=== PATIENT | female | born 1965 | race Caucasian/White ===

== ENCOUNTER 2016-05-07 16:08 | Emergency (ER) | payer MEDICARE, OTHER ==
[2016-05-07 16:29] VITALS: BP 115/57
[2016-05-07] MEDS ORDERED: DIPH/PERTUSS(ACELL)/TETANUS VAC/PF 0.5 ML SYR (>=10YO) IM ONE (16:45)
--- NOTE | 2016-05-07 16:47 | ER Document Report ---
ED Medical Screen (RME) - General Chief Complaint: Laceration Stated Complaint: LACERATION TO LEFT WRIST Time seen by provider: 16:46 Mode of Arrival: Ambulatory Information source: Patient Notes: 50-year-old female cut her dorsal left wrist proximal to the ulnar styloid. Tetanus is not current. I have greeted and performed a rapid initial assessment of this patient. A comprehensive ED assessment, evaluation of the patient, analysis of test results , and completion of the medical decision making process will be contacted by additional ED providers. TRAVEL OUTSIDE OF THE [place] IN LAST 30 DAYS: No Past Medical History GI Medical History: Reports: Hx Hiatal Hernia - [place] 2001 Psychiatric Medical History: Reports: Hx Anxiety - DX [place] 2007, Hx Bipolar Disorder - DX [place] 2007, Hx Depression - DX [place] 2007 Past Surgical History: Reports: Hx Breast Surgery - breast augmentation, Hx Nose Surgery, Hx Oral Surgery, Hx Orthopedic Surgery - left foot. Denies: Hx Adenoidectomy Physical Exam - Vital signs Vitals: Temp Pulse Resp BP Pulse Ox 97.8 F 78 16 115/57 L 97 05/07/16 16:27 05/07/16 16:27 05/07/16 16:27 05/07/16 16:27 05/07/16 16:27 Course - Vital Signs Vital signs: Temp Pulse Resp BP Pulse Ox 97.8 F 78 16 115/57 L 97 05/07/16 16:27 05/07/16 16:27 05/07/16 16:27 05/07/16 16:27 05/07/16 16:27
== END 2016-05-07 20:30 | disposition left against medical advice (07) ==
LOC: ER 16:08
DX: Z53.9 Procedure and treatment not carried out, unspecified reason (principal); S61.512A Laceration without foreign body of left wrist, initial encounter
CPT/HCPCS: 99281

== ENCOUNTER 2016-12-12 10:22 | Emergency (ER) | payer MEDICARE, OTHER ==
[2016-12-12 10:46] VITALS: BP 143/71
--- NOTE | 2016-12-12 11:36 | ER Document Report ---
ED Hand/Wrist Injury - General Chief Complaint: Hand Injury Stated Complaint: DOG BITE Time Seen by Provider: 12/12/16 11:14 Mode of Arrival: Ambulatory Information source: Patient Notes: 50-year-old female presents to ED for a inflamed painful dog bite to her left hand. She states that she was taken her dog to the vet to have him put to sleep when she picked him up to put him on the table he clamped down a bit her on the hand. At the time she was too distraught to pay attention to the bite and she did not clean it then. She did clean it this morning and put peroxide and then alcohol on it but by then it is already started to get infected. TRAVEL OUTSIDE OF THE [place] IN LAST 30 DAYS: No - HPI Injury to: Hand Onset: Yesterday Where: Public place Timing: Still present Quality of pain: Sharp, Throbbing Severity: Mild Pain Level: 3 Context: Other - Dog bite yesterday - Related Data Allergies/Adverse Reactions: No Known Allergies Allergy (Verified 12/12/16 10:44) Past Medical History - General Information source: Patient - Social History Smoking Status: Current Every Day Smoker Cigarette use (# per day): Yes - 1/2-1 pack per day Chew tobacco use (# tins/day): No Smoking Education Provided: Yes - Less than 1 minute Frequency of alcohol use: None Drug Abuse: None Occupation: Retired Lives with: Alone Family History: CAD, COPD, Hyperlipidemia, Hypertension, Malignancy, Thyroid Disfunction Patient has suicidal ideation: No Patient has homicidal ideation: No - Medical History Medical History: Other - Vitamin deficiencies - Past Medical History Cardiac Medical History: Reports: None Pulmonary Medical History: Reports: None EENT Medical History: Reports: None Neurological Medical History: Reports: None Endocrine Medical History: Reports: None Renal/ Medical History: Reports: Hx Ovarian Cysts Malignancy Medical History: Reports: None GI Medical History: Reports: Hx Hiatal Hernia - [place] 2001 Musculoskeltal Medical History: Reports Hx Musculoskeletal Deformity, Reports Hx Musculoskeletal Trauma Skin Medical History: Reports None Psychiatric Medical History: Reports: Hx Anxiety - DX [place] 2007, Hx Bipolar Disorder - DX [place] 2007, Hx Depression - DX [place] 2007, Other - Narcolepsy Traumatic Medical History: Reports: None Infectious Medical History: Reports: None Past Surgical History: Reports: Hx Breast Surgery - breast augmentation, Hx Nose Surgery, Hx Oral Surgery, Hx Orthopedic Surgery - left foot - Immunizations Hx Diphtheria, Pertussis, Tetanus Vaccination: Yes Review of Systems - Review of Systems Constitutional: No symptoms reported EENT: No symptoms reported Cardiovascular: No symptoms reported Respiratory: No symptoms reported Gastrointestinal: No symptoms reported Genitourinary: No symptoms reported Female Genitourinary: No symptoms reported Musculoskeletal: No symptoms reported Skin: Other - dog bite to left hand Hematologic/Lymphatic: No symptoms reported Neurological/Psychological: No symptoms reported -: Yes All other systems reviewed and negative Physical Exam - Vital signs Vitals: Temp Pulse Resp BP Pulse Ox 98.5 F 63 16 143/71 H 100 12/12/16 10:44 12/12/16 10:44 12/12/16 10:44 12/12/16 10:44 12/12/16 10:44 Interpretation: Normal - General General appearance: Appears well, Alert - HEENT Head: Normocephalic, Atraumatic Eyes: Normal Pupils: PERRL - Respiratory Respiratory status: No respiratory distress Chest status: Nontender Breath sounds: Normal Chest palpation: Normal - Cardiovascular Rhythm: Regular Heart sounds: Normal auscultation Murmur: No - Abdominal Inspection: Normal Distension: No distension Bowel sounds: Normal Tenderness: Nontender Organomegaly: No organomegaly - Back Back: Normal, Nontender - Extremities General upper extremity: Normal inspection, Nontender, Normal color, Normal ROM , Normal temperature General lower extremity: Normal inspection, Nontender, Normal color, Normal ROM , Normal temperature, Normal weight bearing. No: Sreekanth's sign Hand: Tender, No evidence of human bite, No evidence of FB, Swelling, Other - dog bite to left hand - Neurological Neuro grossly intact: Yes Cognition: Normal Orientation: AAOx4 [place] Coma Scale Eye Opening: Spontaneous [place] Coma Scale Verbal: Oriented [place] Coma Scale Motor: Obeys Commands [place] Coma Scale Total: 15 Speech: Normal Motor strength normal: LUE, RUE, LLE, RLE Sensory: Normal - Psychological Associated symptoms: Normal affect, Normal mood - Skin Skin Temperature: Warm Skin Moisture: Dry Skin Color: Normal Course - Re-evaluation Re-evalutation: 12/12/16 11:57 HEENT cleaned well with soap and water peroxide applied and bacitracin and Band- Aid. Patient given prescriptions for Augmentin and Phenergan. Patient advised to clean the hand well with soap and water and apply bacitracin and Band-Aid. Patient was provided with bacitracin and Band-Aid. Patient instructed to follow -up with her primary doctor within 48-72 hours to ensure that the hand is healing. - Vital Signs Vital signs: Temp Pulse Resp BP Pulse Ox 98.5 F 63 16 143/71 H 100 12/12/16 10:44 12/12/16 10:44 12/12/16 10:44 12/12/16 10:44 12/12/16 10:44 Discharge - Discharge Clinical Impression: Dog bite of left hand Qualifiers: Encounter type: initial encounter Qualified Code(s): S61.452A - Open bite of left hand, initial encounter Condition: Stable Disposition: HOME, SELF-CARE Additional Instructions: Animal Bites Animal bites are often heavily contaminated with bacteria. In spite of thorough cleansing and proper treatment, these wounds frequently become infected. Bite wounds of the hands are especially prone to complications. Bites are dressed, if possible. Large wounds may require suturing after internal cleansing. Because of infection risk, some large wounds must remain unstitched. Your doctor is trained to advise you on the best treatment for your bite. Call the doctor at once if the wound becomes red, swollen, warm, increasingly painful, or if it begins to drain. Danger signs also include red streaks up the involved extremity, swollen glands in the groin or under the arm , or fever and chills. The risk of rabies from domestic animals is very low. Bats, sick animals, and wild animals may expose you to rabies. The physician, or the health department, will inform you if you will need to receive the rabies vaccine. CELLULITIS: You have an infection of your skin and underlying soft tissues called cellulitis. This is due to bacteria, which can enter through any break in the skin, or even through an irritated hair follicle. Untreated, cellulitis will usually worsen. Antibiotics are required. Usually, warm packs or warm soaks, and elevation of the infected area are recommended. You should start getting better within 24 to 36 hours. Most infections respond quickly to the right medication. Follow-up care is important, however, to check for abscess (boil) formation, unsuspected foreign body, or resistant infection. If you develop fever, chills, or if the area of infection is becoming rapidly more swollen or painful, call the doctor at once. SOAP CLEANSING: Gently wash the wound daily using a mild soap (like Ivory, Phisoderm, Neutrogena). Use warm water, rubbing gently until all debris, ooze, and crusting have been washed from the wound. Allow to dry briefly (about 10 minutes) after cleaning. Repeat this cleansing at least three times a day for the first two days and then once or twice a day. ANTIBIOTIC OINTMENT PROTECTION: Your wounds are such that dressing them is not practical or optional. After cleansing, you should apply a thin coating of antibiotic ointment ( Bacitracin, not Neosporin) to the wounds at least three times daily. This lessens infection risk, and may decrease the amount of scarring. Use a q-tip or dull butter knife, not your finger, to apply this ointment. Any debris or ooze which builds up in the ointment should be gently rubbed off with a sterile gauze pad. Harder crusting may need to be gently scrubbed off with a clean wash cloth with soap and warm water, perhaps applying a warm, wet wash cloth to the wound for ten minutes first. Development of redness, severe itching, or blistering may mean allergy to the ointment. See the doctor. Augmentin Augmentin is a mixture of amoxicillin and clavulanate. Amoxicillin is a member of the penicillin family. It covers the germs likely to cause ear, bronchial, and urinary infections better than plain penicillin. The addition of clavulanate allows it to cover staph infections of the skin, as well as resistant cases of ear and sinus infections. Your physician has chosen Augmentin for you because of the special nature of your situation. Augmentin is best taken with meals. Nausea after taking the medication is rare, but can occur. Diarrhea can occur, particularly in small children. Vaginal yeast infections, and oral thrush in infants are also common. Contact your physician if these problems occur. Allergy to penicillins is common. If you have had an allergic reaction to any drug of the penicillin family, you should never take any other penicillin. Notify your doctor at once if you develop hives, shortness of breath, swelling, or faintness. FOLLOW-UP CARE: Follow-up with your primary doctor in 48-72 hours or sooner if the infection does not clear up. If you have been referred to a physician for follow-up care, call the physician s office for an appointment as you were instructed or within the next two days. If you experience worsening or a significant change in your symptoms, notify the physician immediately or return to the Emergency Department at any time for re-evaluation. Prescriptions: Amox Tr/Potassium Clavulanate [Augmentin 875-125 Tablet] 1 tab PO BID 7 Days tablet Promethazine HCl [Phenergan 25 mg Tablet] 25 mg PO BID #15 tablet Forms: Elevated Blood Pressure, Smoking Cessation Education
== END 2016-12-12 11:40 | disposition home or self-care (01) ==
LOC: ER 10:22
DX: S61.452A Open bite of left hand, initial encounter (principal); F17.210 Nicotine dependence, cigarettes, uncomplicated; W54.0XXA Bitten by dog, initial encounter; Y92.89 Other specified places as the place of occurrence of the external cause
CPT/HCPCS: 99283

== ENCOUNTER 2017-03-10 07:54 | Emergency (ER) | payer MEDICARE, OTHER ==
[2017-03-10 08:08] VITALS: BP 139/72
[2017-03-10] MEDS ORDERED: TETRACAINE HCL 0.5% OPH SOLN 2 ML ONE (08:19)
[2017-03-10] MEDS ORDERED: TETRACAINE HCL 0.5% OPH SOLN 2 ML OD ONE (08:20)
--- NOTE | 2017-03-10 08:29 | ER Document Report ---
HPI - HPI Patient complains to provider of: eye irritation Onset: This morning Onset/Duration: Sudden Quality of pain: Other - sore Pain Level: 4 Context: Patient presents emergency department with complaints that her right eye feels scratchy. She reports she slept in her contacts longer than she normally does. Denies discharge. Denies trauma. Patient also complains of left-sided jaw dental pain. Reports her she has had this pain since she had dental work on Sunday. Denies fever vomiting diarrhea. Associated Symptoms: None Exacerbated by: Denies Relieved by: Denies Similar symptoms previously: Yes Recently seen / treated by doctor: Yes - dentist Past Medical History - General Information source: Patient - Social History Smoking Status: Current Every Day Smoker Cigarette use (# per day): Yes Frequency of alcohol use: None Drug Abuse: None Family History: CAD, COPD, Hyperlipidemia, Hypertension, Malignancy, Thyroid Disfunction Patient has suicidal ideation: No Patient has homicidal ideation: No Renal/ Medical History: Reports: Hx Ovarian Cysts. Denies: Hx Peritoneal Dialysis GI Medical History: Reports: Hx Hiatal Hernia - [place] 2001 Musculoskeltal Medical History: Reports Hx Musculoskeletal Deformity, Reports Hx Musculoskeletal Trauma Psychiatric Medical History: Reports: Hx Anxiety - DX [place] 2007, Hx Bipolar Disorder - DX [place] 2007, Hx Depression - DX [place] 2007 Past Surgical History: Reports: Hx Breast Surgery - breast augmentation, Hx Nose Surgery, Hx Oral Surgery, Hx Orthopedic Surgery - left foot. Denies: Hx Adenoidectomy - Immunizations Hx Diphtheria, Pertussis, Tetanus Vaccination: Yes Vertical Provider Document - CONSTITUTIONAL Agree With Documented VS: Yes - INFECTION CONTROL TRAVEL OUTSIDE OF THE [place] IN LAST 30 DAYS: No - HEENT HEENT: Atraumatic, Normocephalic, PERRLA. negative: Dental Injury, Pharyngeal Erythema, Tympanic Membrane Red - NECK Neck: Normal Inspection, Supple. negative: Lymphadenopathy-Left, Lymphadenopathy-Right - RESPIRATORY Respiratory: Breath Sounds Normal, No Respiratory Distress O2 Sat by Pulse Oximetry: 100 - CARDIOVASCULAR Cardiovascular: Regular Rate - BACK Back: Normal Inspection - MUSCULOSKELETAL/EXTREMETIES Musculoskeletal/Extremeties: MAEW, FROM - NEURO Level of Consciousness: Awake, Alert, Appropriate Motor/Sensory: No Motor Deficit - DERM Integumentary: Warm, Dry Course - Vital Signs Vital signs: Temp Pulse Resp BP Pulse Ox 98.2 F 64 16 139/72 H 100 03/10/17 08:07 03/10/17 08:07 03/10/17 08:07 03/10/17 08:07 03/10/17 08:07 Procedures - Eye Procedure Right Eye Irrigated w/ Saline (ccs): 10 Alcaine Drops Administered: Yes - tetracaine Fluorescein applied: Right Antibiotic Oinment/Drps Admin: Right eye Slit lamp used: No Notes: 03/10/17 11:21 willis lamp utilized no fluorescein uptake noted Discharge - Discharge Clinical Impression: Irritation of right eye, Pain, dental Condition: Stable Disposition: HOME, SELF-CARE Instructions: Acetaminophen, Erythromycin ([facility]), Opthalmology Additional Instructions: *You have been evaluated for eye irritation, dental pain *Take tyelnol as indicated for pain *Use eye ointment as prescribed- 1/2 inch ribbon three times a day for 3 days *Good hand washing- Do not reuse wash clothes or towels after wiping eyes *Follow up with an sole assessor for recheck within one week *Follow up with your dentist within one week *Return to ED for worsening condition, changes, needs Monitor your blood pressure. Your blood pressure was elevated today. This may be because you were anxious, in pain or because you need medication. It is important to follow up with your primary care provider for full evaluation. Forms: Elevated Blood Pressure Referrals: CIARA JEFFERY, [Primary Care Provider] - Follow up as needed
[2017-03-10] MEDS ORDERED: ERYTHROMYCIN 0.5% OPH OINTMENT 3.5 GM (ER DISP) OD SCH (08:30)
== END 2017-03-10 08:36 | disposition home or self-care (01) ==
LOC: ER 07:54
DX: H57.8 Other specified disorders of eye and adnexa (principal); K08.89 Other specified disorders of teeth and supporting structures; F17.210 Nicotine dependence, cigarettes, uncomplicated
CPT/HCPCS: 99283; A9270

== ENCOUNTER 2017-07-13 12:56 | Emergency (ER) | payer OTHER, MEDICARE ==
[2017-07-13 14:15] LABS: APPEARANCE,URINE SLIGHTLY-CLOUDY; BILIRUBIN,URINE NEGATIVE (NEGATIVE); COLOR,URINE YELLOW; GLUCOSE, URINE NEGATIVE (NEGATIVE); KETONES,URINE NEGATIVE (NEGATIVE); LEUKOCYTE ESTERASE,URINE LARGE (NEGATIVE); NITRITE,URINE NEGATIVE (NEGATIVE); PROTEIN,URINE NEGATIVE (NEGATIVE); URINE SPECIFIC GRAVITY 1.008; UROBILINOGEN,URINE NEGATIVE mg/dL (<2.0)
--- NOTE | 2017-07-13 14:51 | ER Document Report ---
ED General - General Mode of Arrival: Ambulatory Information source: Patient <OMERO MARMOLEJO - Last Filed: 07/13/17 15:24> - General TRAVEL OUTSIDE OF THE [place] IN LAST 30 DAYS: No <AC CROCKETT - Last Filed: 07/15/17 10:59> - General Chief Complaint: Flank Pain Stated Complaint: FLANK PAIN Time Seen by Provider: 07/13/17 13:16 Notes: Patient is a 51-year-old female who presents to the emergency department today with complaints of dysuria, urinary frequency, and right-sided flank pain. Patient states she has had urinary tract infections in the past and her symptoms today "feels exactly like her previous urinary tract infections". Patient states she has had chills with subjective fevers and associated nausea. Patient denies any vomiting or vaginal discharge. Patient denies any pelvic pain. (OMERO MARMOLEJO) - Related Data Allergies/Adverse Reactions: NSAIDS (Non-Steroidal Anti-Inflamma Adverse Reaction (Verified 07/13/17 13:11) Past Medical History - General Information source: Patient <OMERO MARMOLEJO - Last Filed: 07/13/17 15:24> - Social History Smoking Status: Current Every Day Smoker Chew tobacco use (# tins/day): No Frequency of alcohol use: Occasional Drug Abuse: None Family History: CAD, COPD, Hyperlipidemia, Hypertension, Malignancy, Thyroid Disfunction Patient has suicidal ideation: No Patient has homicidal ideation: No Renal/ Medical History: Reports: Hx Ovarian Cysts. Denies: Hx Peritoneal Dialysis GI Medical History: Reports: Hx Hiatal Hernia - [place] 2001 Musculoskeltal Medical History: Reports Hx Musculoskeletal Deformity, Reports Hx Musculoskeletal Trauma Psychiatric Medical History: Reports: Hx Anxiety - DX [place] 2007, Hx Bipolar Disorder - DX [place] 2007, Hx Depression - DX [place] 2007 Past Surgical History: Reports: Hx Breast Surgery - breast augmentation, Hx Nose Surgery, Hx Oral Surgery, Hx Orthopedic Surgery - left foot. Denies: Hx Adenoidectomy - Immunizations Hx Diphtheria, Pertussis, Tetanus Vaccination: Yes <BONAC - Last Filed: 07/15/17 10:59> Review of Systems - Review of Systems Constitutional: See HPI, Chills, Fever EENT: No symptoms reported Cardiovascular: No symptoms reported Respiratory: No symptoms reported Gastrointestinal: See HPI, Nausea. denies: Vomiting Genitourinary: See HPI, Dysuria, Flank pain - right Female Genitourinary: denies: Vaginal discharge Musculoskeletal: No symptoms reported Skin: No symptoms reported Hematologic/Lymphatic: No symptoms reported Neurological/Psychological: No symptoms reported -: Yes All other systems reviewed and negative <OMERO MARMOLEJO - Last Filed: 07/13/17 15:24> Physical Exam <OMERO MARMOLEJO - Last Filed: 07/13/17 15:24> <AC CROCKETT - Last Filed: 07/15/17 10:59> - Vital signs Vitals: Temp Pulse Resp BP Pulse Ox 99.9 F 80 18 139/57 H 98 07/13/17 13:01 07/13/17 13:01 07/13/17 13:01 07/13/17 13:01 07/13/17 13:01 - Notes Notes: Physical Exam: General: Alert, appears well. HEENT: Normocephalic. Atraumatic. PERRL. Extraocular movements intact. Oropharynx clear. Neck: Supple. Non-tender. Respiratory: No respiratory distress. Clear and equal breath sounds bilaterally. Cardiovascular: Regular rate and rhythm. Abdominal: Normal Inspection. Non-tender. No distension. Normal Bowel Sounds. Back: Right CVA tenderness to percussion. No deformity or step off. Extremities: Moves all four extremities. Upper extremities: Normal inspection. Normal ROM. Lower extremities: Normal inspection. No edema. Normal ROM. Neurological: Normal cognition. AAOx4. Normal speech. Psychological: Normal affect. Normal Mood. Skin: Warm. Dry. Normal color. (OMERO MARMOLEJO) Course <FRANCIEOMERO - Last Filed: 07/13/17 15:24> <AC CROCKETT - Last Filed: 07/15/17 10:59> - Re-evaluation Re-evalutation: 07/13/17 14:47 Urine shows signs of infection. Due to low-grade fever and right-sided flank pain will treat for presumed pyelonephritis versus cystitis. Levaquin provided and return precautions instructed. (AC CROCKETT) - Vital Signs Vital signs: Temp Pulse Resp BP Pulse Ox 99.9 F 74 19 130/61 H 99 07/13/17 13:01 07/13/17 14:55 07/13/17 14:55 07/13/17 14:55 07/13/17 14:55 - Laboratory Laboratory results interpreted by me: 07/13/17 13:30 Urine Blood LARGE H Ur Leukocyte Esterase LARGE H Discharge <OMERO MARMOLEJO - Last Filed: 07/13/17 15:24> <AC CROCKETT - Last Filed: 07/15/17 10:59> - Discharge Clinical Impression: Urinary tract infection Qualifiers: Urinary tract infection type: site unspecified Hematuria presence: with hematuria Qualified Code(s): N39.0 - Urinary tract infection, site not specified Disposition: HOME, SELF-CARE Instructions: Urinary Tract Infection ([facility]) Additional Instructions: Any worsening or symptoms her symptoms are not improving in the next 3-4 days please return to emergency department for reevaluation Prescriptions: Levofloxacin [Levaquin 750 mg Tablet] 750 mg PO DAILY 7 Days #7 tablet Referrals: CIARA JEFFERY DO [Primary Care Provider] - Follow up as needed Scribe Attestation: 07/15/17 10:59 I personally performed the services described in the documentation, reviewed and edited the documentation which was dictated to the scribe in my presence, and it accurately records my words and actions. (AC CROCKETT) Scribe Documentation - Scribe Written by Lm:: Lm Stephens, 07/13/2017 1535 acting as scribe for :: Bon <OMERO MARMOLEJO - Last Filed: 07/13/17 15:24>
[2017-07-13] MEDS ORDERED: ONDANSETRON 4 MG TAB.RAPDIS PO ONE (14:56)
[2017-07-13] MEDS ORDERED: ONDANSETRON ODT 4 MG TAB (6 TAB/ER DISP) PO PRN (15:00)
[2017-07-13 15:20] VITALS: BP 130/61
== END 2017-07-13 14:55 | disposition home or self-care (01) ==
LOC: ER 12:56
DX: N39.0 Urinary tract infection, site not specified (principal); R10.9 Unspecified abdominal pain; F17.200 Nicotine dependence, unspecified, uncomplicated
CPT/HCPCS: 81001; 81025; 99284

== ENCOUNTER 2017-11-03 14:34 | Emergency (ER) | payer MEDICARE, OTHER ==
--- NOTE | 2017-11-03 15:24 | ER Document Report ---
ED Medical Screen (RME) - General Chief Complaint: Headache >24 hrs old Stated Complaint: HEADACHE,NAUSEA Time Seen by Provider: 11/03/17 15:21 Mode of Arrival: Ambulatory Information source: Patient TRAVEL OUTSIDE OF THE [place] IN LAST 30 DAYS: No - HPI Patient complains to provider of: chest tightness; LEVY Onset: Yesterday - pt states she has had intermittent LEVY for the past several days- developed some chest tightness ("feels constricted") earlier today - Related Data Allergies/Adverse Reactions: NSAIDS (Non-Steroidal Anti-Inflamma Adverse Reaction (Verified 11/03/17 14:35) Past Medical History - Social History Chew tobacco use (# tins/day): No Frequency of alcohol use: None Drug Abuse: None Renal/ Medical History: Reports: Hx Ovarian Cysts. Denies: Hx Peritoneal Dialysis GI Medical History: Reports: Hx Hiatal Hernia - [place] 2001 Musculoskeltal Medical History: Reports Hx Musculoskeletal Deformity, Reports Hx Musculoskeletal Trauma Psychiatric Medical History: Reports: Hx Anxiety - DX [place] 2007, Hx Bipolar Disorder - DX [place] 2007, Hx Depression - DX [place] 2007 Past Surgical History: Reports: Hx Breast Surgery - breast augmentation, Hx Nose Surgery, Hx Oral Surgery, Hx Orthopedic Surgery - left foot. Denies: Hx Adenoidectomy - Immunizations Hx Diphtheria, Pertussis, Tetanus Vaccination: Yes Physical Exam - Vital signs Vitals: Temp Pulse Resp BP Pulse Ox 98.7 F 74 18 145/88 H 98 11/03/17 14:39 11/03/17 14:39 11/03/17 14:39 11/03/17 14:39 11/03/17 14:39 Course - Vital Signs Vital signs: Temp Pulse Resp BP Pulse Ox 98.7 F 74 18 145/88 H 98 11/03/17 14:39 11/03/17 14:39 11/03/17 14:39 11/03/17 14:39 11/03/17 14:39 Doctor's Discharge - Discharge Referrals: CIARA JEFFERY DO [Primary Care Provider] - Follow up as needed
[2017-11-03] MEDS: ASPIRIN 325 MG TABLET PO ONE (15:30)
[2017-11-03 16:14] LABS: ABSOLUTE LYMPHOCYTES (AUTO) 2.9 10^3/uL (0.5-4.7); ABSOLUTE MONOCYTES (AUTO) 0.5 10^3/uL (0.1-1.4); ABSOLUTE NEUT (AUTO) 2.7 10^3/uL (1.7-8.2); BASOPHILS % (AUTO) 0.2 % (0-2); EOSINOPHILS % (AUTO) 0.1 % (0-6); HEMATOCRIT 41.6 % (36.0-47.0); HEMOGLOBIN 14.2 g/dL (12.0-15.5); LYMPHOCYTES % (AUTO) 47.5 % (13-45); MEAN CORPUSCULAR HEMOGLOBIN 32.7 pg (27.0-33.4); MEAN CORPUSCULAR HGB CONC 34.1 g/dL (32.0-36.0); MEAN CORPUSCULAR VOLUME 96 fl (80-97); MONOCYTES % (AUTO) 7.8 % (3-13); PLATELET COUNT 220 10^3/uL (150-450); RED BLOOD COUNT 4.35 10^6/uL (3.72-5.28); RED CELL DISTRIBUTION WIDTH 13.7 % (11.5-14.0); SEGMENTED NEUTROPHILS % (AUTO) 44.4 % (42-78); TOTAL CELLS COUNTED % (AUTO) 100 %; WHITE BLOOD COUNT 6.1 10^3/uL (4.0-10.5)
--- NOTE | 2017-11-03 16:15 | RADIOLOGY REPORT (SQ) ---
EXAM DESCRIPTION: CHEST 2 VIEWS COMPLETED DATE/TIME: 11/03/2017 3:59 pm REASON FOR STUDY: cp COMPARISON: None. EXAM PARAMETERS: NUMBER OF VIEWS: two views TECHNIQUE: Digital Frontal and Lateral radiographic views of the chest acquired. RADIATION DOSE: NA LIMITATIONS: none FINDINGS: LUNGS AND PLEURA: No opacities, masses or pneumothorax. No pleural effusion. MEDIASTINUM AND HILAR STRUCTURES: No masses or contour abnormalities. HEART AND VASCULAR STRUCTURES: Heart normal size. No evidence for failure. BONES: No acute findings. HARDWARE: None in the chest. OTHER: No other significant finding. IMPRESSION: NO ACUTE RADIOGRAPHIC FINDING IN THE CHEST. TECHNICAL DOCUMENTATION: JOB ID: [id number] [employer]- All Rights Reserved Reading location - IP/workstation name: [email or web address]
[2017-11-03 16:39] LABS: ALANINE AMINOTRANSFERASE 20 U/L (9-52); ALBUMIN 4.3 g/dL (3.5-5.0); ALKALINE PHOSPHATASE 63 U/L (38-126); ANION GAP 11 (5-19); ASPARTATE AMINO TRANSFERASE 19 U/L (14-36); BILIRUBIN,DIRECT 0.2 mg/dL (0.0-0.4); BILIRUBIN,TOTAL 0.3 mg/dL (0.2-1.3); BLOOD UREA NITROGEN 9 mg/dL (7-20); CALCIUM 9.8 mg/dL (8.4-10.2); CARBON DIOXIDE 28 mmol/L (22-30); CHLORIDE 105 mmol/L (98-107); CREATINE KINASE 55 U/L (30-135); GLUCOSE 98 mg/dL (75-110); TOTAL PROTEIN 7.3 g/dL (6.3-8.2)
[2017-11-03 16:48] LABS: CREATINE KINASE MB 0.43 ng/mL (<4.55)
[2017-11-03 16:49] LABS: TROPONIN I < 0.012 ng/mL
--- NOTE | 2017-11-03 17:35 | ER Document Report ---
ED General - General Chief Complaint: Headache >24 hrs old Stated Complaint: HEADACHE,NAUSEA Time Seen by Provider: 11/03/17 15:21 Mode of Arrival: Ambulatory Information source: Patient TRAVEL OUTSIDE OF THE [place] IN LAST 30 DAYS: No - HPI Onset: Other - 10 DAYS, CONTINUAL HEADACHE Onset/Duration: Gradual Quality of pain: Dull Severity: Mild Associated symptoms: Chest pain - INTERMITTENT, Chills, Fever - UNSURE WAS NORMAL EVERY TIME CHECKED, Nausea, Sweating. denies: Nonproductive cough, Productive cough, Shortness of breath Exacerbated by: Denies Relieved by: Denies Similar symptoms previously: No Recently seen / treated by doctor: No - Related Data Allergies/Adverse Reactions: NSAIDS (Non-Steroidal Anti-Inflamma Adverse Reaction (Verified 11/03/17 15:23) Past Medical History - General Information source: Patient - Social History Smoking Status: Current Every Day Smoker Cigarette use (# per day): Yes Chew tobacco use (# tins/day): No Frequency of alcohol use: None Drug Abuse: None Family History: CAD, COPD, Hyperlipidemia, Hypertension, Malignancy, Thyroid Disfunction Patient has suicidal ideation: No Patient has homicidal ideation: No - Past Medical History Cardiac Medical History: Reports: None Pulmonary Medical History: Reports: None EENT Medical History: Reports: None Neurological Medical History: Reports: None Endocrine Medical History: Reports: None Renal/ Medical History: Reports: Hx Ovarian Cysts. Denies: Hx Peritoneal Dialysis Malignancy Medical History: Reports: None GI Medical History: Reports: Hx Hiatal Hernia - [place] 2001 Musculoskeletal Medical History: Reports Hx Musculoskeletal Deformity, Reports Hx Musculoskeletal Trauma Psychiatric Medical History: Reports: Hx Anxiety - DX IN 2007, Hx Bipolar Disorder - DX IN 2007, Hx Depression - DX IN 2007 Past Surgical History: Reports: Hx Breast Surgery - breast augmentation, Hx Nose Surgery, Hx Oral Surgery, Hx Orthopedic Surgery - left foot. Denies: Hx Adenoidectomy - Immunizations Hx Diphtheria, Pertussis, Tetanus Vaccination: Yes Review of Systems - Review of Systems Constitutional: Chills, Diaphoresis, Weakness EENT: No symptoms reported, Sinus pressure - RETRO-ORBITAL. denies: Ear pain, Nose congestion, Sinus discharge, Throat pain, Difficulty swallowing Cardiovascular: Chest pain Respiratory: No symptoms reported. denies: Cough, Short of breath Gastrointestinal: Nausea, Poor appetite. denies: Diarrhea, Vomiting, Constipation Genitourinary: No symptoms reported Female Genitourinary: No symptoms reported Musculoskeletal: No symptoms reported Skin: No symptoms reported Neurological/Psychological: Headaches Physical Exam - Vital signs Vitals: Temp Pulse Resp BP Pulse Ox 98.7 F 74 18 145/88 H 98 11/03/17 14:39 11/03/17 14:39 11/03/17 14:39 11/03/17 14:39 11/03/17 14:39 Interpretation: Hypertensive. No: Tachycardic, Tachypneic, Febrile - General General appearance: Appears well, Alert In distress: None - HEENT Head: Normocephalic Eyes: Normal Conjunctiva: Normal Ears: Normal Nasal: Normal Mouth/Lips: Normal Mucous membranes: Normal Pharynx: Normal Neck: Normal, Supple - Respiratory Respiratory status: No respiratory distress Chest status: Nontender Breath sounds: Normal - Cardiovascular Rhythm: Regular Heart sounds: Normal auscultation Murmur: No - Abdominal Inspection: Normal Distension: No distension Bowel sounds: Normal - Back Back: Normal, Nontender - Extremities General upper extremity: Normal inspection General lower extremity: Normal inspection - Neurological Neuro grossly intact: Yes Cognition: Normal Orientation: AAOx4 - Psychological Associated symptoms: Normal affect, Normal mood - Skin Skin Temperature: Warm Skin Moisture: Dry Skin Color: Normal Skin Turgor: Elastic Course - Re-evaluation Re-evalutation: 11/03/17 20:19 Patient states she is subjectively unchanged. Results of laboratory and radiology workup discussed. Suggest repeat EKG in troponin. Patient elects to decline repeat testing. Will be discharged home with symptomatic treatment. - Vital Signs Vital signs: Temp Pulse Resp BP Pulse Ox 97.9 F 65 18 126/58 H 100 11/03/17 18:28 11/03/17 18:28 11/03/17 18:28 11/03/17 18:28 11/03/17 18:28 - Laboratory Result Diagrams: 11/03/17 15:48 11/03/17 15:48 Laboratory results interpreted by me: 11/03/17 15:48 Lymphocytes % 47.5 H - Diagnostic Test Radiology reviewed: Image reviewed, Reports reviewed - EKG Interpretation by Me EKG shows normal: Sinus rhythm, [place] [facility], Intervals, QRS Complexes, ST-T Waves Rate: Normal Rhythm: NSR Discharge - Discharge Clinical Impression: Viral illness, Headache around the eyes Chest pain Qualifiers: Chest pain type: unspecified Qualified Code(s): R07.9 - Chest pain, unspecified Condition: Stable Disposition: HOME, SELF-CARE Instructions: Viral Syndrome ([facility]) Additional Instructions: REST, DRINK PLENTY OF FLUIDS. YOU MAY TAKE TRAMADOL DIRECTED IF NEEDED FOR PAIN RELIEF. CONTINUE TAKING SUDAFED AND AN ANTIHISTAMINE TO HELP WITH SINUS CONGESTION. FOLLOW UP WITH YOUR PRIMARY CARE PROVIDER IF NOT IMPROVING IN 48 HOURS. Prescriptions: Tramadol HCl 50 mg PO Q4HP PRN #14 tablet PRN Reason: For Pain Referrals: CIARA JEFFERY, [Primary Care Provider] - Follow up as needed
[2017-11-03 18:32] VITALS: BP 126/58
--- NOTE | 2017-11-03 21:07 | EKG REPORT ---
SEVERITY:- NORMAL ECG - SINUS RHYTHM : Confirmed by: Marry Arambula MD 03-Nov-2017 21:06:28
== END 2017-11-03 20:28 | disposition home or self-care (01) ==
LOC: ER 14:34
DX: R51 Headache (principal); B34.9 Viral infection, unspecified; R07.9 Chest pain, unspecified; R53.1 Weakness; R61 Generalized hyperhidrosis; R11.0 Nausea; F17.210 Nicotine dependence, cigarettes, uncomplicated
CPT/HCPCS: 36415; 71046; 80053; 82550; 82553; 84484; 85025; 93005; 93010; 99284

== ENCOUNTER → 2017-11-16 | Outpatient (CLI) | payer MEDICARE, OTHER ==
--- NOTE | 2017-11-16 18:46 | RADIOLOGY REPORT (SQ) ---
EXAM DESCRIPTION: MRI HEAD COMBO COMPLETED DATE/TIME: 11/16/2017 6:35 pm REASON FOR STUDY: HEADACHE,NAUSEA R51 HEADACHE R11.0 NAUSEA COMPARISON: None. TECHNIQUE: Multiplanar imaging includes noncontrasted T1, T2, FLAIR, diffusion with ADC map and post gadolinium contrast T1 sequences. Images stored on PACS. CONTRAST TYPE AND DOSE: 15 mL Prohance. RENAL FUNCTION: GFR > 60. LIMITATIONS: None. FINDINGS: ANATOMY: No anomalies. Normal vascular flow voids. Pituitary fossa normal. CSF SPACES: Normal in size and contour. No hemorrhage. CEREBRUM: Sulci and gyri normal in size and contour. Normal white matter signal on FLAIR imaging. No evidence of hemorrhage, mass, or extraaxial fluid collection. No abnormal enhancement post contrast. POSTERIOR FOSSA: No signal alteration. No hemorrhage. No edema, masses, or mass effect. Internal simona tory canals, cerebellopontine angles, mastoids normal. No enhancing lesions. No abnormal enhancement post contrast. DIFFUSION IMAGING: Negative for acute or subacute infarction. ORBITS: No masses. Globes normal. PARANASAL SINUSES: No fluid levels. Mucosa normal. OTHER: No other significant finding. IMPRESSION: NORMAL MRI OF THE BRAIN WITHOUT AND WITH INTRAVENOUS GADOLINIUM CONTRAST. EVIDENCE OF ACUTE STROKE: NO. TECHNICAL DOCUMENTATION: JOB ID: [id number] [employer]- All Rights Reserved Reading location - IP/workstation name: [email or web address]
--- NOTE | 2017-11-16 18:49 | RADIOLOGY REPORT (SQ) ---
EXAM DESCRIPTION: MRI CERVICAL SPINE WITHOUT COMPLETED DATE/TIME: 11/16/2017 6:35 pm REASON FOR STUDY: neck pain R51 HEADACHE R11.0 NAUSEA COMPARISON: None. TECHNIQUE: Sagittal and Axial imaging includes T1, T2, STIR and gradient echo sequences. LIMITATIONS: None. FINDINGS: ALIGNMENT: Normal. VERTEBRAE: Intact. BONE MARROW: Normal. No marrow replacement or reactive changes. DISCS: Normal. No significant abnormal signal or loss of height. HARDWARE: None in the spine. CORD AND BASE OF BRAIN: Normal in size and signal intensity. SOFT TISSUES: No soft tissue masses. C1-C2: No significant spinal stenosis. C2-C3: No significant spinal stenosis or exit foraminal stenosis. C3-C4: No significant spinal stenosis or exit foraminal stenosis. C4-C5: No significant spinal stenosis or exit foraminal stenosis. C5-C6: No significant spinal stenosis or exit foraminal stenosis. C6-C7: Right-sided posterior disc bulge with mild impingement of the exiting nerve roots and borderli ne impingement of the cord. Mild right exit foraminal stenosis. No significant central spinal steno sis. C7-T1: No significant spinal stenosis or exit foraminal stenosis. UPPER THORACIC: Incompletely imaged. No significant spinal stenosis or exit foraminal stenosis. OTHER: No other significant finding. IMPRESSION: RIGHT-SIDED POSTERIOR DISC BULGE AT C6-C7 WITH MILD IMPINGEMENT OF THE EXITING NERVE ZACK TS AND BORDERLINE IMPINGEMENT OF THE CORD. MILD RIGHT EXIT FORAMINAL STENOSIS. NO OTHER SIGNIFICANT FINDINGS. TECHNICAL DOCUMENTATION: JOB ID: [id number] [employer]- All Rights Reserved Reading location - IP/workstation name: [email or web address]
== END ==
LOC: RAD 16:12
PROVIDERS: ATTEND Student in an Organized Health Care Education/Training Program
DX: R51 Headache (principal); R11.0 Nausea; M50.823 Other cervical disc disorders at C6-C7 level; M48.02 Spinal stenosis, cervical region
CPT/HCPCS: 82565; 70553; 72141; A9576

== ENCOUNTER → 2018-02-20 | Outpatient (CLI) | payer MEDICARE, OTHER ==
--- NOTE | 2018-02-20 13:04 | EKG REPORT ---
SEVERITY:- OTHERWISE NORMAL ECG - SINUS RHYTHM RIGHT AXIS DEVIATION : Confirmed by: Demian Nuñez MD 20-Feb-2018 13:02:59
[2018-02-20 13:27] LABS: ALANINE AMINOTRANSFERASE 17 U/L (9-52); ALBUMIN 4.2 g/dL (3.5-5.0); ALKALINE PHOSPHATASE 88 U/L (38-126); ANION GAP 10 (5-19); ASPARTATE AMINO TRANSFERASE 18 U/L (14-36); BILIRUBIN,DIRECT 0.3 mg/dL (0.0-0.4); BILIRUBIN,TOTAL 0.3 mg/dL (0.2-1.3); BLOOD UREA NITROGEN 7 mg/dL (7-20); CALCIUM 9.5 mg/dL (8.4-10.2); CARBON DIOXIDE 29 mmol/L (22-30); CHLORIDE 103 mmol/L (98-107); GLUCOSE 97 mg/dL (75-110); POTASSIUM 3.6 mmol/L (3.6-5.0); SODIUM 141.7 mmol/L (137-145)
[2018-02-21 08:24] LABS: HEMATOCRIT 43.3 % (36.0-47.0); HEMOGLOBIN 14.8 g/dL (12.0-15.5); MEAN CORPUSCULAR HEMOGLOBIN 32.8 pg (27.0-33.4); MEAN CORPUSCULAR HGB CONC 34.1 g/dL (32.0-36.0); MEAN CORPUSCULAR VOLUME 96 fl (80-97); PLATELET COUNT 229 10^3/uL (150-450); RED CELL DISTRIBUTION WIDTH 13.6 % (11.5-14.0); WHITE BLOOD COUNT 5.1 10^3/uL (4.0-10.5)
== END ==
LOC: OD 12:23
PROVIDERS: ATTEND Surgery
DX: Z01.810 Encounter for preprocedural cardiovascular examination (principal); Z01.812 Encounter for preprocedural laboratory examination; Z01.818 Encounter for other preprocedural examination; K62.5 Hemorrhage of anus and rectum; K64.9 Unspecified hemorrhoids; R51 Headache; F32.9 Major depressive disorder, single episode, unspecified; G47.30 Sleep apnea, unspecified; R45.0 Nervousness; G47.419 Narcolepsy without cataplexy; E72.12 Methylenetetrahydrofolate reductase deficiency; E55.9 Vitamin D deficiency, unspecified; K52.839 Microscopic colitis, unspecified; E07.9 Disorder of thyroid, unspecified
CPT/HCPCS: 36415; 80053; 85025; 85027; 93005; 93010

== ENCOUNTER 2018-02-21 11:34 | Day surgery (SDC) | payer MEDICARE, OTHER ==
--- NOTE | 2018-02-20 13:16 | RADIOLOGY REPORT (SQ) ---
EXAM DESCRIPTION: CHEST PA/LATERAL COMPLETED DATE/TIME: 02/20/2018 12:58 pm REASON FOR STUDY: PRE-OP COMPARISON: Two-view chest 11/03/2017 EXAM PARAMETERS: NUMBER OF VIEWS: two views TECHNIQUE: Digital Frontal and Lateral radiographic views of the chest acquired. RADIATION DOSE: NA LIMITATIONS: none FINDINGS: LUNGS AND PLEURA: No opacities, masses or pneumothorax. No pleural effusion. MEDIASTINUM AND HILAR STRUCTURES: No masses or contour abnormalities. HEART AND VASCULAR STRUCTURES: Heart normal size. No evidence for failure. BONES: No acute findings. HARDWARE: None in the chest. OTHER: No other significant finding. IMPRESSION: NO SIGNIFICANT RADIOGRAPHIC FINDING IN THE CHEST. TECHNICAL DOCUMENTATION: JOB ID: [id number] [employer]- All Rights Reserved Reading location - IP/workstation name: [email or web address]
[2018-02-21] MEDS ORDERED: BUPIVACAINE HCL 0.5 % INJ/PF 30 ML SDV ONE (11:47)
[2018-02-21] MEDS ORDERED: BUPIVACAINE HCL 0.5%-EPI 1:200000 INJ/PF 30 ML VIAL ONE (11:47)
[2018-02-21] MEDS ORDERED: LIDOCAINE 2% JELLY 30 ML TUBE ONE (11:48)
[2018-02-21] MEDS ORDERED: MIDAZOLAM 2 MG/2 ML INJ ONE (12:34)
[2018-02-21] MEDS ORDERED: HYDROMORPHONE HCL INJ/PF 2 MG/ML AMPULE ONE (12:35)
[2018-02-21] MEDS ORDERED: PROPOFOL INJ 200 MG/20 ML VIAL IV ONE (12:35)
[2018-02-21] MEDS ORDERED: FENTANYL CITRATE INJ/PF 100 MCG/2 ML AMPUL ONE (12:35)
--- NOTE | 2018-02-21 13:47 | Discharge Summary ---
Discharge Summary (SDC) - Discharge Final Diagnosis: Enlarged, bleeding internal and external hemorrhoids Date of Surgery: 02/21/18 Discharge Date: 02/21/18 Condition: Stable Forms: [facility] Discharge Plan Treatment or Instructions: Discharge home. Diet as tolerated. Activity: Nonstrenuous. Warm sits baths in soapy water twice daily and after bowel movements. Ronceverte 10/325 mg p.o. to 6 hours as needed for pain. 2% lidocaine ointment to rectum 3 times daily. Neosporin ointment to rectum 3 times daily. 800 mg ibuprofen ([id number] ) 3 times daily with meals. Follow-up with me in 7-10 days. Okay to shower. Referrals: NOE WALDEN MD [ACTIVE STAFF] - Discharge Diet: As Tolerated Respiratory Treatments at Home: Deep Breathing/Coughing, Incentive Spirometer Discharge Activity: Balance Activity w/Rest Home Care Assistance: None Needed Report the Following to Your Physician Immediately: Shortness of Breath, Nausea , Vomiting, Increase in Pain, Fever over 101 Degrees, Unusual Bleeding, Redness , Swelling, Warmth
--- NOTE | 2018-02-21 13:53 | Operative Report ---
Nonrecallable Operative Report DATE OF SURGERY: 02/21/18 PREOPERATIVE DIAGNOSIS: Enlarged, bleeding internal and external hemorrhoids. POSTOPERATIVE DIAGNOSIS: Same as above. OPERATION: 1. 2 column Surgical hemorrhoidectomy (right posterior and left lateral columns). 2. Rubber band ligation of internal hemorrhoids in the right anterior position. SURGEON: NOE WALDEN ANESTHESIA: LMAC TISSUE REMOVED OR ALTERED: Right posterior and left lateral hemorrhoid columns COMPLICATIONS: None apparent ESTIMATED BLOOD LOSS: Minimal PROCEDURE: Drains/implants: None. Procedure in detail: After informed consent was obtained, the patient was brought into the operating room and laid in the prone jackknife position. The area of the rectum was prepped and draped in normal sterile fashion. An anal block was created with half percent Marcaine. Once this was completed, a Hill- Dove retractor was inserted into the rectum. Hemorrhoids were enlarged in all 3 columns, worse in the left lateral and right posterior positions. The hemorrhoids were then excised. The left lateral column was excised first. The hemorrhoid was excised from the internal to the external position using the Bovie. All enlarged hemorrhoidal tissue was excised. The defect was then closed using 3-0 chromic suture in simple running fashion. Great care was taken to reapproximate mucosa to mucosa, anoderm to anoderm, and skin to skin. Once this was completed, attention was turned to the right posterior column. The right posterior column was excised from the internal to the external position. This was done with Bovie electrocautery. The defect was closed using 3-0 chromic suture in simple running fashion. Great care was again taken to reapproximate mucosa to mucosa, anoderm to anoderm, and skin to skin. Once this was completed the Hill-Dove retractor was again inserted. The right anterior position was enlarged internally. The rubber band ligation device was used to ligate the right anterior internal hemorrhoid. A dressing was then fashioned. Once this was completed, the procedure was concluded. All sponge, instrument, and needle counts were correct x2. Condition: Stable.
[2018-02-21] MEDS ORDERED: OXYCODONE-ACETAMINOPHEN 5-325 MG TABLET ONE (14:33)
== END 2018-02-21 15:00 | disposition home or self-care (01) ==
LOC: SC 11:34
PROVIDERS: ATTEND Surgery
DX: K62.5 Hemorrhage of anus and rectum (principal); K64.9 Unspecified hemorrhoids
CPT/HCPCS: 88304 ×2; 71046; 46260; J2250; J3490; J3010; A9270; J1170; J2704; 902

== ENCOUNTER 2020-02-09 22:34 | Emergency (ER) | payer MEDICARE, OTHER ==
[2020-02-09] MEDS ORDERED: METOCLOPRAMIDE HCL INJ/PF 10 MG/2 ML SDV IV ONE (23:13)
[2020-02-09] MEDS ORDERED: RINGERS SOLUTION,LACTATED 1,000 ML IV ONE (23:13)
--- NOTE | 2020-02-09 23:15 | ER Document Report ---
ED Medical Screen (RME) - General Chief Complaint: Chest Tightness Stated Complaint: CHEST TIGHTNESS Time Seen by Provider: 02/09/20 23:11 Primary Care Provider: MAHAD,NO [Primary Care Provider] - Follow up as needed Mode of Arrival: Ambulatory Information source: Patient Notes: HPI; 54-year-old female past medical history significant for chronic bronchitis and migraines presents to the emergency room complaining of persistent headache behind her eyes for the past 3 to 4 days. Has been taking her Fioricet without relief. She denies any head trauma head injury. Denies worst headache of her life. States also developed some midsternal chest tightness that started earlier tonight. Denies any nausea, vomiting, no cardiac history. No cough, no fever, no COVID-19 exposure. PE: Alert and oriented x3. Lungs: Clear to auscultation without rales, rhonchi, wheezes. Heart: Regular rate rhythm without murmurs, rubs, gallops. I have greeted and performed a rapid initial assessment of this patient. A comprehensive ED assessment and evaluation of the patient, analysis of test results and completion of the medical decision making process will be conducted by additional ED providers. I have specifically instructed the patient or family members with the patient to immediately return to any nursing staff should anything change in the patient's condition or with their chief complaint. TRAVEL OUTSIDE OF THE [place] IN LAST 30 DAYS: Yes - [employer] CRUISE ENDED 02/09/18 - Related Data Allergies/Adverse Reactions: NSAIDS (Non-Steroidal Anti-Inflamma Adverse Reaction (Intermediate, Verified 02/21/18 11:57) Diarrhea amoxicillin [From Augmentin] Adverse Reaction (Mild, Verified 02/21/18 12:34) VOMITING clavulanic acid [From Augmentin] Adverse Reaction (Mild, Verified 02/21/18 12:34) VOMITING Past Medical History - Past Medical History Cardiac Medical History: Reports: Hx Hypertension Denies: Hx Heart Attack Pulmonary Medical History: Denies: Hx Asthma Neurological Medical History: Denies: Hx Cerebrovascular Accident, Hx Seizures Renal/ Medical History: Reports: Hx Ovarian Cysts. Denies: Hx Peritoneal Dialysis GI Medical History: Reports: Hx Hiatal Hernia - [place] 2001. Denies: Hx Hepatitis, Hx Ulcer Musculoskeltal Medical History: Reports Hx Musculoskeletal Deformity, Reports Hx Musculoskeletal Trauma Psychiatric Medical History: Reports: Hx Anxiety - DX [place] 2008, Hx Bipolar Disorder - DX [place] 2008, Hx Depression - DX IN 2008 Infectious Medical History: Denies: Hx Hepatitis Past Surgical History: Reports: Hx Breast Surgery - breast augmentation, Hx Nose Surgery, Hx Oral Surgery, Hx Orthopedic Surgery - left foot. Denies: Hx Adenoidectomy, Hx Hysterectomy, Hx Mastectomy, Hx Open Heart Surgery, Hx Pacemaker - Immunizations Hx Diphtheria, Pertussis, Tetanus Vaccination: Yes Doctor's Discharge - Discharge Referrals: LOCALMD,NO [Primary Care Provider] - Follow up as needed
[2020-02-09 23:20] VITALS: BP 146/69
[2020-02-09 23:42] LABS: ABSOLUTE BASOPHILS # (AUTO) 0.1 10^3/uL (0.0-0.2); ABSOLUTE EOSINOPHILS # (AUTO) 0.1 10^3/uL (0.0-0.6); ABSOLUTE LYMPHOCYTES (AUTO) 3.1 10^3/uL (0.5-4.7); ABSOLUTE MONOCYTES (AUTO) 0.4 10^3/uL (0.1-1.4); BASOPHILS % (AUTO) 0.9 % (0-2); EOSINOPHILS % (AUTO) 1.8 % (0-6); HEMATOCRIT 40.2 % (36.0-47.0); HEMOGLOBIN 13.6 g/dL (12.0-15.5); MEAN CORPUSCULAR HEMOGLOBIN 33.7 pg (27.0-33.4); MEAN CORPUSCULAR HGB CONC 33.8 g/dL (32.0-36.0); MEAN CORPUSCULAR VOLUME 100 fl (80-97); MONOCYTES % (AUTO) 6.6 % (3-13); PLATELET COUNT 223 10^3/uL (150-450); RED BLOOD COUNT 4.03 10^6/uL (3.72-5.28); RED CELL DISTRIBUTION WIDTH 13.9 % (11.5-14.0); SEGMENTED NEUTROPHILS % (AUTO) 44.7 % (42-78); TOTAL CELLS COUNTED % (AUTO) 100 %; WHITE BLOOD COUNT 6.7 10^3/uL (4.0-10.5)
[2020-02-10 00:04] LABS: ALBUMIN 4.2 g/dL (3.5-5.0); ALKALINE PHOSPHATASE 93 U/L (38-126); ANION GAP 6 (5-19); ASPARTATE AMINO TRANSFERASE 19 U/L (14-36); BILIRUBIN,TOTAL 0.2 mg/dL (0.2-1.3); BLOOD UREA NITROGEN 13 mg/dL (7-20); CALCIUM 9.9 mg/dL (8.4-10.2); CARBON DIOXIDE 29 mmol/L (22-30); CHLORIDE 105 mmol/L (98-107); CREATINE KINASE 65 U/L (30-135); GLUCOSE 84 mg/dL (75-110); TOTAL PROTEIN 6.7 g/dL (6.3-8.2)
[2020-02-10 00:15] LABS: CREATINE KINASE MB 0.72 ng/mL (<4.55)
[2020-02-10 00:17] LABS: TROPONIN I < 0.012 ng/mL
--- NOTE | 2020-02-10 15:13 | EKG REPORT ---
SEVERITY:- NORMAL ECG - SINUS RHYTHM : Confirmed by: Marry Arambula MD 10-Feb-2020 15:12:17
== END 2020-02-10 01:25 | disposition left against medical advice (07) ==
LOC: ER 22:34
DX: R07.9 Chest pain, unspecified (principal); I10 Essential (primary) hypertension; Z88.6 Allergy status to analgesic agent; Z88.0 Allergy status to penicillin
CPT/HCPCS: 36415; 80053; 82550; 82553; 84484; 85025; 93005; 93010; 99281